=== PATIENT | male | born 1960 | race African-American/Black ===

== ENCOUNTER 2017-03-22 15:44 | Emergency (ER) | payer MEDICAID, OTHER ==
[~2017-03-22] VITALS: Ht 180.3 cm; Wt 90.7 kg
[2017-03-22 16:04] VITALS: BP 130/77
--- NOTE | 2017-03-22 16:05 | NUR ---
PT TO ED ROOM 06. BLOOD IN THE STOOL X 1 WEEK , ABDOMINAL PAIN. A/A/O. VS WNL. AMBULATORY W/ STEADY GAIT. CHANGED TO GOWN. SIDE RAISL UP. HOB ELEVATED. CONNECTED TO MONITOR.
--- NOTE | 2017-03-22 16:06 | NUR ---
AT BEDSIDE FOR EVAL.
== END 2017-03-22 16:43 | disposition home or self-care (01) ==
LOC: ER 15:45
DX: K64.9 Unspecified hemorrhoids (principal); K59.00 Constipation, unspecified; F17.200 Nicotine dependence, unspecified, uncomplicated
CPT/HCPCS: 99282; A4606; Z7610